=== PATIENT | female | born 1980 | race Caucasian/White ===

== ENCOUNTER 2016-08-29 18:01 | Emergency (ER) | payer MEDICAID, OTHER ==
[~2016-08-29] VITALS: Ht 157.5 cm; Wt 70.0 kg
[~2016-08-29 18:01] MED LIST: ACET-915 PO; ACET1TAB40 PO; ACET500C5 PO; CALC-649 PO; CEPH-443 PO; FERR27TA PO; IBUP-1542 PO; MECL25TA2 PO; NAPR-688 PO; PREN1TAB49 PO; TRAM50TA2 PO
[2016-08-29 18:05] VITALS: Ht 157.5 cm; Wt 70.0 kg
--- NOTE | 2016-08-29 19:04 | RADRPT ---
PROCEDURE: US Pelvis. CLINICAL INDICATION: Pelvic pain. TECHNIQUE: The pelvis was evaluated with transabdominal sonography in the axial and sagittal plane s. COMPARISON: No prior study is available for comparison. FINDINGS: Uterus: 8.2 x 4.0 x 8.1 cm. Endometrium: 4.1 mm. Right ovary: 2.4 x 1.5 x 1.8 cm. Left ovary: 4.2 x 2.6 x 2.8 cm. Uterine masses: None. Ovarian masses: None. Color Doppler and pulsed Doppler sonography demonstrate normal flow to the ova janet. Other pelvic masses: None. Free fluid: None. IMPRESSION: 1. Normal pelvic ultrasound. RPTAT: QQ .eBhzad Titus MD, MD Date Time Electronically viewed and signed by .Behzad Titus MD, on 08/29/2016 19:04 .R/
--- NOTE | 2016-08-29 21:38 | RADRPT ---
PROCEDURE: CT abdomen and pelvis without contrast. CLINICAL INDICATION: Left lower quadrant pain TECHNIQUE: CT scan of the abdomen and pelvis without contrast was performed on a GE multi-slice CT scanner utilizing axial imaging from the lung bases through the pubis symphysis. The patient was s canned without intravenous contrast. Sagittal and coronal reformatted images were made. The CTDIvo l is mGy and the DLP is 7.86 413.47 mGycm. One of the following 3 dose reduction techniques were used during this CT examination: automated exp osure control; adjustment of the mA and /or kV according to patient size; or use of iterative recons tructon technique. COMPARISON: 08/01/2015 CT abdomen and pelvis FINDINGS: The lung bases are clear. The heart size is normal. No pericardial or pleural effusion is present. The liver, gallbladder, pancreas, spleen, adrenal glands, and kidneys are all normal in appearance o n this noncontrast examination. The visualized bowel, including the appendix, is normal in appearanc e. No evidence for diverticulosis, diverticulitis or appendicitis is present. The appendix is norm al. No evidence for ascites or pneumoperitoneum is present. The aorta is normal without aneurysmal dilatation. The visualized uterus is enlarged and measures approximately 10 cm in AP dimensions by 8 cm in trans verse dimensions. Recommend pelvic ultrasound to evaluate for potential leiomyomas uterine. The bi lateral adnexa appears normal. No evidence for pelvic ascites or pathologic lymphadenopathy is note d. The urinary bladder is normal. No evidence for pelvic ascites or pneumoperitoneum is present. The visualized osseous structures ar e normal. IMPRESSION: 1. No evidence for acute intra-abdominal or pelvic pathology. 2. Mild enlargement of the uterus and recommend pelvic ultrasound or CT pelvis with contrast to neri luate for leiomyomatous uteri or other uterine pathology. RPTAT: HDC .Rekha Fonseca MD, Date Time Electronically viewed and signed by .Rekha Fonseca MD, MD on 08/29/2016 21:38 .C/
[2016-08-29] MEDS ORDERED: IBUP800T25 PO (22:06)
[2016-08-29] MEDS ORDERED: HYDR-902 PO (22:06)
--- NOTE | 2016-08-29 22:12 | ERD ---
ER Documentation Chief Complaint Date/Time DATE: 08/29/16 TIME: 22:09 Chief Complaint AP X 2 WEEKS HPI This is a 35-year-old female who states that she has pain in her left adnexal region for 2 weeks on a daily basis described as sharp and constant. The pain is worse with intercourse and with walking. She says she has no discharge from the vagina. No dysuria no hematuria. She says the pain radiates down the top of her left thigh into her left back at times. Denies any fever denies any of this in the past. No abdominal pain vomiting or diarrhea ROS All systems reviewed and are negative except as per history of present illness. Medications Home Meds Active Scripts Hydrocodone/Acetaminophen (Clear 10-325 Tablet) 1 Each Tablet, 1 TAB PO Q6H Y for PAIN, #20 TAB Prov:PARDEEP KAUFMAN DO 08/29/16 Ibuprofen* (Motrin*) 800 Mg Tab, 800 MG PO Q6H Y for PAIN AND OR ELEVATED TEMP, #30 TAB Prov:PARDEEP KAUFMAN DO 08/29/16 Naproxen* (Naproxen*) 500 Mg Tablet, 500 MG PO BID Y for PAIN, #14 TAB Prov:SANDEI FARMER DO 08/01/15 Acetaminophen-Codeine* (Acetaminophen-Cod #3*) 300-30 Mg Tab, 1 TAB PO Q8 Y for PAIN, #10 TAB Prov:SANDIE FARMER DO 08/01/15 Ibuprofen* (Motrin*) 600 Mg Tab, 600 MG PO Q6H Y for PAIN AND OR ELEVATED TEMP, #30 TAB Prov:CHANDAN STOREY NP 06/23/15 Meclizine Hcl* (Antivert*) 25 Mg Tablet, 25 MG PO Q6H Y for dizziness, #20 TAB Prov:CAHNDAN STOREY NP 06/23/15 Cephalexin* (Keflex*) 500 Mg Capsule, 500 MG PO QID for 5 Days, CAP Prov:TIA HARDY MD 06/01/15 Ibuprofen* (Motrin*) 600 Mg Tab, 600 MG PO Q6, #20 TAB Prov:TIA HARDY MD 06/01/15 Ibuprofen* (Motrin*) 600 Mg Tab, 600 MG PO Q6, #20 TAB Prov:TIA HARDY MD 10/22/14 Tramadol HCl (Tramadol HCl) 50 Mg Tab, 50 MG PO Q4 Y for PAIN, #20 TAB Prov:TIA HARDY MD 10/22/14 Tramadol HCl (Tramadol HCl) 50 Mg Tab, 50 MG PO Q4 Y for PAIN, #20 TAB Prov:TIA HARDY MD 10/22/14 Acetaminophen* (Tylophen*) 500 Mg Capsule, 1 CAP PO Q6H Y for PAIN AND OR ELEVATED TEMP, #20 CAP Prov:KEKE NGUYEN PA-C 09/02/14 Acetaminophen-Codeine* (Acetaminophen-Cod #3*) 300-30 Mg Tab, 1 TAB PO Q4H Y for PAIN, #14 TAB Prov:TIA HARDY MD 07/12/14 Reported Medications Calcium Carbonate (Calcium) 1 Tab Tablet, 1 TAB PO DAILY 03/12/12 Ferrous Sulfate (Iron) 1 Tab Tablet, 1 TAB PO DAILY 03/12/12 Vits W-Ca,Fe,Fa(<1MG) () 1 Tab Tablet, 1 TAB PO DAILY 03/12/12 Acetaminophen* (Tylenol*) 325 Mg Tab, PO 07/22/11 Allergies Allergies: Coded Allergies: No Known Allergy (Verified , 07/19/14) PMhx/Soc History of Surgery: No Anesthesia Reaction: No Hx Neurological Disorder: No Hx Respiratory Disorders: No Hx Cardiac Disorders: No Hx Psychiatric Problems: No Hx Miscellaneous Medical Probl: No Hx Alcohol Use: No Hx Substance Use: No Hx Tobacco Use: No Smoking Status: Never smoker FmHx Family History: No coronary disease Physical Exam Vitals Vital Signs Date Time Temp Pulse Resp B/P Pulse Ox O2 Delivery O2 Flow Rate FiO2 08/29/16 18:05 98.1 60 18 119/60 99 Physical Exam Const: Well-developed, well-nourished Head: Atraumatic, normocephalic Eyes: Normal Conjunctiva, PERRLA, EOMI, normal sclera, no nystagmus ENT: Normal External Ears, Nose and Mouth, moist mucus membranes. Neck: Full range of motion. No meningismus, no lymphadenopathy. Resp: Clear to auscultation bilaterally, no wheezing, rhonchi, rales Cardio: Regular rate and rhythm, no murmurs, S1 S2 present Abd: Soft, non tender x 4,, there is mild to moderate tenderness in the left adnexal region non distended. Normal bowel sounds, no guarding or rebound, no pulsitile abdominal masses or bruits Skin: No petechiae or rashes, no ecchymosis , no maculopapular rash Back: No midline or flank tenderness Ext: No cyanosis, or edema, FROM x 4, normal inspection, neurovascularly intact x 4 Neur: Awake and alert, STR 5/5 x 4, sensation intact x 4, no focal findings, cerebellum intact Psych: Normal Mood and Affect Procedures/MDM PROCEDURE: CT abdomen and pelvis without contrast. CLINICAL INDICATION: Left lower quadrant pain TECHNIQUE: CT scan of the abdomen and pelvis without contrast was performed on a [place] multi-slice CT scanner utilizing axial imaging from the lung bases through the pubis symphysis. The patient was scanned without intravenous contrast. Sagittal and coronal reformatted images were made. The CTDIvol is mGy and the DLP is 7.86 413.47 mGycm. One of the following 3 dose reduction techniques were used during this CT examination: automated exposure control; adjustment of the mA and /or kV according to patient size; or use of iterative reconstructon technique. COMPARISON: 08/01/2015 CT abdomen and pelvis FINDINGS: The lung bases are clear. The heart size is normal. No pericardial or pleural effusion is present. The liver, gallbladder, pancreas, spleen, adrenal glands, and kidneys are all normal in appearance on this noncontrast examination. The visualized bowel, including the appendix, is normal in appearance. No evidence for diverticulosis , diverticulitis or appendicitis is present. The appendix is normal. No evidence for ascites or pneumoperitoneum is present. The aorta is normal without aneurysmal dilatation. The visualized uterus is enlarged and measures approximately 10 cm in AP dimensions by 8 cm in transverse dimensions. Recommend pelvic ultrasound to evaluate for potential leiomyomas uterine. The bilateral adnexa appears normal. No evidence for pelvic ascites or pathologic lymphadenopathy is noted. The urinary bladder is normal. No evidence for pelvic ascites or pneumoperitoneum is present. The visualized osseous structures are normal. IMPRESSION: 1. No evidence for acute intra-abdominal or pelvic pathology. 2. Mild enlargement of the uterus and recommend pelvic ultrasound or CT pelvis with contrast to evaluate for leiomyomatous uteri or other uterine pathology. RPTAT: HDC .Rekha Fonseca MD, Date Time Electronically viewed and signed by .Rekha Fonseca MD, on 08/29/2016 21: 38 .C/ CC: PARDEEP KAUFMAN DO PROCEDURE: US Pelvis. CLINICAL INDICATION: Pelvic pain. TECHNIQUE: The pelvis was evaluated with transabdominal sonography in the axial and sagittal planes. COMPARISON: No prior study is available for comparison. FINDINGS: Uterus: 8.2 x 4.0 x 8.1 cm. Endometrium: 4.1 mm. Right ovary: 2.4 x 1.5 x 1.8 cm. Left ovary: 4.2 x 2.6 x 2.8 cm. Uterine masses: None. Ovarian masses: None. Color Doppler and pulsed Doppler sonography demonstrate normal flow to the ovaries. Other pelvic masses: None. Free fluid: None. IMPRESSION: 1. Normal pelvic ultrasound. RPTAT: QQ .Tia Titus MD, Date Time Electronically viewed and signed by .Tia Titus MD, on 08/29/2016 19:04 .R/ CC: PARDEEP KAUFMAN DO No evidence of ovarian cysts no evidence of ureter stones or kidney stones. No evidence of bowel obstruction. The patient is having signs that are consistent clinically with an ovarian cyst. There is no sign of torsion either. Provide her with some Motrin and hydrocodone for pain. She needs to follow-up with her OB chin Departure Diagnosis: Primary Impression: Pelvic pain Condition: Stable Patient Instructions: Pelvic Pain, Unknown Cause PARDEEP KAUFMAN DO Aug 29, 2016 22:12
[2016-08-29 22:36] VITALS: BP 139/79; PULSE 70; RESP 17
== END 2016-08-29 22:37 | disposition home or self-care (01) ==
LOC: FTE 18:01
DX: R10.2 Pelvic and perineal pain (principal)
CPT/HCPCS: 74176; 76856; Z7502